=== PATIENT | male | born 1940 | race Caucasian/White ===

== ENCOUNTER 2023-11-08 14:16 | Outpatient (CLI) | payer MEDICARE, SELFPAY ==
[2023-11-08 14:23] VITALS: BMI 25.8
[2023-11-08 14:48] LABS: Basophils % 0.1 % (0.1-2.0); Eosinophils # 0.1 K/mm3 (0.0-0.4); Eosinophils % 1.2 % (0.1-12.0); Hematocrit 28.9 % (42.0-52.0); Hemoglobin 9.2 g/dL (14.1-18.0); Lymphocytes % 18.2 % (10-50); Mean Corpuscular HGB Conc 31.9 g/dL (31.8-35.4); Mean Corpuscular Hemoglobin 28.4 pg (27.0-31.2); Mean Corpuscular Volume 89.1 fl (80-94); Mean Platelet Volume 8.2 fl (7.4-10.4); Monocytes # 0.3 K/mm3 (0.1-1.0); Monocytes % 5.3 % (1.7-9.3); Neutrophils % 75.3 % (37.0-80.0); Platelet Count 234 K/mm3 (142-424); Red Blood Count 3.24 M/mm3 (4.60-6.20); Red Cell Distribution Width 17.2 % (11.5-17.5); Reticulocyte % (Auto) 1.2 % (0.9-3.2); White Blood Count 5.3 K/mm3 (4.8-10.8)
[2023-11-08 15:06] LABS: Chloride 111 mmol/L (98-107); Potassium 3.5 mmoL/L (3.5-5.1); Sodium 138 mmol/L (136-145)
[2023-11-08 15:08] LABS: Alanine Aminotransferase 28 U/L (12-78); Aspartate Amino Transferase 26 U/L (17-59); Blood Urea Nitrogen 15 mg/dl (9-20); Creatinine Clearance Estimated 56 mL/min (50-200); Estimated Glomerular Filt Rate 64 ml/min (>60); GFR (African American) 78 ML/MIN (>60)
[2023-11-08 15:09] LABS: Albumin Level 3.3 g/dl (3.5-5.0); Alkaline Phosphatase 529 U/L (38-126); Anion Gap 10.5 mEq/L (5-15); Bilirubin,Total 0.3 mg/dl (0.2-1.3); Calcium 7.9 mg/dl (8.4-10.2); Carbon Dioxide 20 mmol/L (22.0-30.0); Globulin 3.4 g/dL (1.3-3.2); Glucose 94 mg/dl (74-100); Iron 54 ug/dL (49-181); Total Protein,Serum 6.7 g/dl (6.3-8.2)
[2023-11-08 15:19] LABS: Total Iron Binding Capacity 260 ug/dL (261-462)
[2023-11-08 15:46] LABS: Ferritin 377 ng/ml (17.9-464)
[2023-11-08 16:02] LABS: Lactate Dehydrogenase 427 U/L (313-618)
[2023-11-08 17:55] LABS: Prostate Specific Ag, Diagnost 277 ng/ml (0.0-4.0)
== END 2023-11-08 14:45 | disposition home or self-care (01) ==
LOC: INF 14:19
PROVIDERS: PCP Nurse Practitioner Family; Visit Provider Internal Medicine Medical Oncology
DX: C61 Malignant neoplasm of prostate (principal); Z79.899 Other long term (current) drug therapy
CPT/HCPCS: 36591; 80053; 82728; 83540; 83550; 83615; 84153; 85025; 85044; 86880